=== PATIENT | male | born 1960 | race Two or more races ===

== ENCOUNTER 2024-03-31 15:03 | Emergency (ER) | payer OTHER ==
[~2024-03-31] VITALS: Ht 170.2 cm; Wt 104.3 kg
[2024-03-31 16:38] LABS: BASOPHILS ABSOLUTE AUTO 0.06 K/mm3 (0.00-0.23); BASOPHILS PERCENT AUTO 1 % (0-2); EOSINOPHILS ABSOLUTE AUTO 0.71 K/mm3 (0.00-0.68); EOSINOPHILS PERCENT AUTO 9 % (0-6); Hematocrit 39.4 % (37.0-53.0); Hemoglobin 13.9 g/dL (13.5-17.5); IMMATURE GRAN ABSOLUTE AUTO 0.07 K/mm3 (0.00-0.10); IMMATURE GRAN PERCENT AUTO 1 % (0-1); LYMPHOCYTES ABSOLUTE AUTO 1.45 K/mm3 (0.84-5.20); LYMPHOCYTES PERCENT AUTO 19 % (21-46); MONOCYTES ABSOLUTE AUTO 0.42 K/mm3 (0.16-1.47); MONOCYTES PERCENT AUTO 5 % (4-13); Mean Corpuscular HGB 31.5 pg (26.0-34.0); Mean Corpuscular HGB Conc 35.3 g/dL (31.5-36.5); Mean Corpuscular Volume 89 fL (80-100); NEUTROPHILS ABSOLUTE AUTO 5.07 K/mm3 (1.96-9.15); NEUTROPHILS PERCENT AUTO 65 % (41-73); RDW Coefficient Variation 12.4 % (11.7-14.2); RDW Standard Deviation 40.5 fL (35.1-46.3); Red Blood Cell Count 4.41 M/mm3 (4.30-5.90); White Blood Cell Count 7.78 K/mm3 (4.00-11.30)
[2024-03-31 16:47] LABS: Albumin, Blood 3.8 g/dL (3.4-5.0); Bilirubin, Total 0.4 mg/dL (0.1-1.0); Bun/Creatinine Ratio 14.8 (12.0-20.0); Calcium, Blood 9.3 mg/dL (8.5-10.1); Creatinine, Blood 1.22 mg/dL (0.60-1.20); Potassium, Blood 4.3 mmol/L (3.5-5.5); Total Protein, Blood 7.8 g/dL (6.4-8.2)
[2024-03-31 16:56] LABS: Mean Platelet Volume 10.1 fL (9.1-12.4); Platelet Count 195 K/mm3 (150-400)
[2024-03-31] MEDS ORDERED: TRELEGY ELLIPT1 EACH IH (17:58)
[2024-03-31] MEDS ORDERED: ATOR10 PO (17:58)
[2024-03-31] MEDS ORDERED: NORVASC2.5 MG PO (17:58)
[2024-03-31] MEDS ORDERED: Amitriptyline H10 MG PO (17:58)
[2024-03-31] MEDS ORDERED: TRELEGY ELLIPT1 EACH INH (18:41)
== END 2024-03-31 18:57 | disposition home or self-care (01) ==
LOC: ER 15:03
PROVIDERS: Physician Assistant
DX: R07.2 Precordial pain (principal); J44.89 Other specified chronic obstructive pulmonary disease; I10 Essential (primary) hypertension; E78.5 Hyperlipidemia, unspecified; F17.290 Nicotine dependence, other tobacco product, uncomplicated
CPT/HCPCS: 71046; 80053; 84484; 85025; 93005; 93010; 99285-25